=== PATIENT | female | born 1995 | race Caucasian/White ===

== ENCOUNTER → 2016-04-05 | Outpatient (CLI) | payer BC ==
--- NOTE | 2016-04-05 10:28 | US ---
EXAMINATION TYPE: US OB anatomy transabd DATE OF EXAM: 04/05/2016 8:50 AM COMPARISON: February ultrasound HISTORY: Large for dates TECHNIQUE: Transabdominal (TA) EXAM MEASUREMENTS: GESTATIONAL AGE / DATING Physician Established: (18 weeks/ 4 days) EDC: 09/02/2016 Dates by LMP: (18 weeks/ 4 days) EDC: 09/02/2016 Dates by First Scan: (19 weeks/ 1 days) EDC: 08/29/2016 Dates by Current Scan: (18 weeks/ 1 days) EDC: 09/05/2016 SURVEY IUP: Single PLACENTA: Posterior PREVIA: Low Lying: tip of placenta 2.0cm from internal cervical os ENRIQUE: 12.1 cm Normal CERVICAL LENGTH (transabdominal: norm > 3.0cm): 3.5 cm BIOMETRY PRESENTATION: Breech LIE: Longitudinal BPD: 4.0 cm 18 weeks / 1 days HC: 15.3 cm 18 weeks / 2 days AC: 12.6 cm 18 weeks / 1 days FL: 2.7 cm 18 weeks / 1 days ESTIMATED WEIGHT IN GRAMS: 227.6 grams ESTIMATED WEIGHT IN LBS/OZS: 0 lbs. 8 oz. WEIGHT PERCENTAGE BASED ON ESTABLISHED DATE: 23.8 % HC/AC: Normal 1.22 FL/AC: 21.38 HEART RATE: 147 bpm RHYTHM: Normal ANATOMY SEEN (within normal limits): * Lateral Vent (< 1 cm) 0.7cm * Cisterna Magna (< 1.1 cm) 0.4cm * Nuchal Fold (< 0.6 cm) 0.3cm * Cerebellum (varies with age) 1.6cm Choroid Plexus (bilateral) Midline Falx Cavus Septi Pellucidi Four Chamber Heart Outflow tracts: LVOT/RVOT not ideally demonstrated. Stomach Situs Nose / Lips Diaphragm Kidneys (bilateral) Bladder Cord Insert Three Vessel Cord Longitudinal Spine Transverse Spine Arms (bilateral) Legs (bilateral) TECHNOLOGIST IMPRESSION: Viable single IUP measuring 18 weeks 1 day with a heart rate of 147bpm and an estimated delivery date of 09/05/2016. IMPRESSION: Single viable intrauterine corresponding to ultrasound age 18 weeks 1 day with estimated da te of delivery 05 September 2016 as described.
== END | disposition home or self-care (01) ==
LOC: RADUSWWP 07:46
PROVIDERS: ATTEND Obstetrics & Gynecology
DX: O36.62X0 Maternal care for excessive fetal growth, second trimester, not applicable or unspecified (principal); Z3A.18 18 weeks gestation of pregnancy
CPT/HCPCS: 76811

== ENCOUNTER → 2016-05-19 | Outpatient (CLI) | payer BC ==
[2016-05-19 10:35] LABS: CH 30.3; CHCM 33.5; HCT 36.4 % (34.0-46.0); HDW 2.67; HGB 11.8 gm/dL (11.4-16.0); MCH 29.6 pg (25.0-35.0); MCHC 32.6 g/dL (31.0-37.0); Mean Platelet Volume 7.1; WBC 16.9 k/uL (3.8-10.6)
== END | disposition home or self-care (01) ==
LOC: LABWHC1 07:59
PROVIDERS: ATTEND Obstetrics & Gynecology
DX: Z34.82 Encounter for supervision of other normal pregnancy, second trimester (principal); Z3A.00 Weeks of gestation of pregnancy not specified
CPT/HCPCS: 36415; 82950; 85027; 86850

== ENCOUNTER → 2016-06-14 | Outpatient (CLI) | payer BC ==
--- NOTE | 2016-06-14 12:11 | US ---
EXAMINATION TYPE: US OB anatomy transabd DATE OF EXAM: 06/14/2016 11:16 AM COMPARISON: In pacs HISTORY: Previous abnormal, placenta placement TECHNIQUE: Transabdominal (TA) EXAM MEASUREMENTS: GESTATIONAL AGE / DATING Physician Established: (28 weeks/4 days) EDC: 09/02/2016 Dates by LMP: (28 weeks/4 days) EDC: 09/02/2016 Dates by First Scan: (29 weeks/1 days) EDC: 08/29/2016 Dates by Current Scan for: (29 weeks/1 days) EDC: 08/29/2016 SURVEY IUP: Single PLACENTA: Posterior PREVIA: No previa ENRIQUE: 12.3 cm Normal CERVICAL LENGTH (transabdominal: norm > 3.0cm): 3.4 cm BIOMETRY PRESENTATION: Vertex LIE: Longitudinal BPD: 7.3 cm 29 weeks / 3 days HC: 26.0 cm 28 weeks / 2 days AC: 24.4 cm 28 weeks / 5 days FL: 5.7 cm 30 weeks / 0 days ESTIMATED WEIGHT IN GRAMS: 1331 grams ESTIMATED WEIGHT IN LBS/OZS: 2 lbs. 15 oz. WEIGHT PERCENTAGE BASED ON ESTABLISHED DATE: 56 % HC/AC: 1.07 Normal FL/AC: 23% Normal HEART RATE: 129 bpm RHYTHM: Normal ANATOMY SEEN (within normal limits): Midline Falx Cavus Septi Pellucidi Outflow tracts: RVOT Stomach Situs Nose / Lips Diaphragm Kidneys (bilateral) Bladder Cord Insert Three Vessel Cord Longitudinal Spine Transverse Spine ANATOMY NOT SEEN: * Lateral Vent (< 1 cm) cm * Cisterna Magna (< 1.1 cm) cm * Nuchal Fold (< 0.6 cm) cm * Cerebellum (varies with age) cm Choroid Plexus (bilateral) Four Chamber Heart Outflow Tracts: LVOT Arms (bilateral) Legs (bilateral) TECHNOLOGIST IMPRESSION: Viable single IUP measuring 29 weeks 1 day with a heart rate of 129bpm and an estimated delivery date of 08/29/2016. IMPRESSION: Single viable intrauterine corresponding to ultrasound age 29 weeks 1 day with estimated da te of delivery August by today's exam. Limited exam.
== END ==
LOC: RADUSWWP 10:36
PROVIDERS: ATTEND Obstetrics & Gynecology
DX: Z36 Encounter for antenatal screening of mother (principal)
CPT/HCPCS: 76811

== ENCOUNTER → 2016-08-03 | Outpatient (CLI) | payer BC ==
--- NOTE | 2016-08-03 13:30 | US ---
EXAMINATION TYPE: US OB >= 14 wk fetus DATE OF EXAM: 08/03/2016 10:00 AM COMPARISON: None CLINICAL HISTORY: Large for Dates O36.63X0 TECHNIQUE: OBTA GESTATIONAL AGE / DATING Physician Established: (35 weeks/5 days) EDC: 09/02/2016 Dates by LMP: (35 weeks/5 days) EDC: 09/02/2016 Dates by First Scan: (36 weeks/2 days) EDC: 08/29/2016 Dates by Current Scan: (34 weeks/5 days) EDC: 09/09/2016 SURVEY IUP: Single PLACENTA: Anterior PREVIA: No Previa ENRIQUE: 12.0 cm Normal CERVICAL LENGTH (transabdominal: norm > 3.0cm): 3.4 cm BIOMETRY PRESENTATION: Vertex LIE: Longitudinal BPD: 8.7 cm 35 weeks / 0 days HC: 31.4 cm 35 weeks / 1 days AC: 31.8 cm 35 weeks / 1 days FL: 6.7 cm 34 weeks / 4 days ESTIMATED WEIGHT IN GRAMS: 2638 grams ESTIMATED WEIGHT IN LBS/OZS: 5 lbs. 13 oz. WEIGHT PERCENTAGE BASED ON ESTABLISHED DATES: 37% HC/AC: 1.0 Normal FL/AC: 21.1 Normal HEART RATE: 143 bpm RHYTHM: Normal ANATOMY SEEN (within normal limits): Four Chamber Heart Outflow tracts: LVOT/RVOT Stomach Situs Nose / Lips Diaphragm Kidneys (bilateral) Bladder IMPRESSION: Single viable intrauterine corresponding to ultrasound age 34 weeks 5 days with estimated d ate of delivery 09 September 2016 by today's exam. Limited survey.
== END | disposition home or self-care (01) ==
LOC: RADUSWWP 09:27
PROVIDERS: ATTEND Obstetrics & Gynecology
DX: O36.63X0 Maternal care for excessive fetal growth, third trimester, not applicable or unspecified (principal); Z3A.34 34 weeks gestation of pregnancy
CPT/HCPCS: 76811

== ENCOUNTER 2016-08-13 21:49 | Inpatient (IN) | payer BC ==
[2016-08-13 22:15] LABS: Appearance,Urine Clear (Clear); Bacteria,Urine Occasional /hpf; Bilirubin,Urine Negative (Negative); Glucose,Urine (UA) Negative (Negative); Ketones,Urine Negative (Negative); Leukocyte Esterase,Urine Trace (Negative); Mucus,Urine Rare /hpf; Nitrite,Urine Negative (Negative); PH, Urine 6.5 (5.0-8.0); Particle Count 4420; Protein,Urine 2+ (Negative); RBC,Urine 1 /hpf (0-5); Specific Gravity,Urine 1.014 (1.001-1.035); Squamous Epithelial Cell,Urine 1 /hpf (0-4); UA Billing (MACRO vs. MICRO) MICRO; Urobilinogen,Urine <2.0 mg/dL (<2.0); WBC,Urine 2 /hpf (0-5)
[2016-08-13] MEDS ORDERED: MAGNESIUM SULFATE-D5W PMX 1 GM in DEXTROSE/WATER 1 100ML.BAG IVPB SCH (22:30)
[2016-08-13] MEDS ORDERED: LACTATED RINGERS 1,000 ML IV SCH (22:30)
[2016-08-13 22:43] LABS: Basophils # (A) 0.1 k/uL (0-0.2); Basophils % (A) 0 %; CH 27.6; CHCM 32.7; Eosinophils # (A) 0.2 k/uL (0-0.7); Eosinophils % (A) 1 %; HCT 33.8 % (34.0-46.0); HDW 3.06; HGB 11.2 gm/dL (11.4-16.0); Luc # (Auto) 0.32; Luc % (Auto) 2; Lymphocytes % (A) 14 %; MCV 84.8 fL (80.0-100.0); Mean Platelet Volume 8.9; Monocytes # (A) 0.9 k/uL (0-1.0); Monocytes % (A) 6 %; Neutrophils # (A) 10.8 k/uL (1.3-7.7); Neutrophils % (A) 76 %; RBC 3.98 m/uL (3.80-5.40); RDW 14.2 % (11.5-15.5); WBC 14.3 k/uL (3.8-10.6); WBC (Perox) 14.89
[2016-08-13 22:51] LABS: ALT 27 U/L (9-52); AST 24 U/L (14-36); Blood Urea Nitrogen 10 mg/dL (7-17); INR 0.9 (<1.1); LDH 475 U/L (313-618); Non-African American GFR(MDRD) >60 (>60 ml/min/1.73 sqM); Partial Thromboplastin Time 22.1 sec (22.0-30.0); Prothrombin Time 9.3 sec (9.0-12.0); Uric Acid 4.9 mg/dL (3.7-7.4)
[2016-08-13] MEDS ORDERED: MAGNESIUM SULFATE-WATER PMX 4 GM in WATER FOR INJECTION 1 50ML.BAG IVPB ONE (23:00)
[2016-08-13] MEDS: MAGNESIUM SULFATE-WATER PMX 20 GM in WATER FOR INJECTION 1 500ML.BAG IV SCH (23:07)
[2016-08-14] MEDS ORDERED: METHYLERGONOVINE 0.2 MG/ML 1 ML AMP IM PRN (00:07)
[2016-08-14] MEDS ORDERED: TERBUTALINE 1 MG/ML VIAL SQ PRN (00:07)
[2016-08-14] MEDS ORDERED: LIDOCAINE 1% (PF) 10 MG/ML (30 ML SDV) SQ PRN (00:07)
[2016-08-14] MEDS ORDERED: OXYTOCIN 10 UNIT/ML 1 ML VIAL IM PRN (00:07)
[2016-08-14] MEDS ORDERED: CARBOPROST TROMETHAMINE 250 MCG/ML 1 ML AMP IM PRN (00:07)
[2016-08-14] MEDS ORDERED: OXYTOCIN 20 UNITS/1000 ML NS 1,000 ML IV SCH ×2 (00:15→14:14)
--- NOTE | 2016-08-14 01:00 | P.HPOB ---
History of Present Illness H&P Date: 08/14/16 Chief Complaint: Leg swelling, elevated blood pressure This is a 20-year-old female 1 para 0, with an estimated date of confinement of 09/02/2016, estimated gestational age of 37 and one sevenths weeks, who presented to labor and delivery complaining of a headache for the last 2 days along with significant leg swelling and elevated blood pressures at home. She states her blood pressures at home or in the 150s over 90s. She only took her blood pressure because she began having a headache along with a slight swelling. She initially thought the leg swelling was just from being on her feet at work. Upon arrival to labor and delivery her blood pressures were in the range of 188/96, 180/93, 193/95. Labs were drawn and she was immediately started on magnesium sulfate seizure prophylaxis. Order was also given for IV labetalol however it was not needed due to her blood pressure did come down significantly with the magnesium. All of her labs were normal other than she did have 2+ protein. Her has been uncomplicated up until this point. She feels occasional sharp pressure and occasional contractions but nothing regular. She denies any leakage or vaginal bleeding. The patient was counseled extensively on induction of labor versus proceeding with a primary section since she is remote from delivery. She would like to attempt vaginal delivery if possible, however she is aware that she may still need a even after attempted induction. I have advised her I'm in agreement with this plan as long as her blood pressures stayed stable on the magnesium. labs: record is not available at the time of this dictation. Labs are obtained off of the computer. Patient states no problems during her . She did receive RhoGAM at approximately 28 weeks. Blood type-A- Antibody screen-negative Rubella-immune Hepatitis B surface antigen-negative HIV-neg Group B streptococcus-negative One hour Glucola-102 Syphilis antibody-negative Review of Systems Constitutional: Denies chills, Denies fever Eyes: denies blurred vision Ears, nose, mouth and throat: Denies sore throat Cardiovascular: Denies chest pain, Denies shortness of breath Respiratory: Denies cough Gastrointestinal: Denies abdominal pain, Denies diarrhea, Denies nausea, Denies vomiting Genitourinary: Reports pelvic pain (Some pelvic pressure), Reports Musculoskeletal: Denies myalgias Musculoskeletal: bilateral: ankle swelling, foot swelling (Leg swelling up to her knees bilaterally) Integumentary: Denies pruritus, Denies rash Neurological: Reports headaches (2 days), Denies numbness, Denies weakness Endocrine: Denies fatigue Past Medical History Past Medical History: No Reported History History of Any Multi-Drug Resistant Organisms: None Reported Additional Past Surgical History / Comment(s): wisdom teeth Past Anesthesia/Blood Transfusion Reactions: No Reported Reaction Past Psychological History: No Psychological Hx Reported Smoking Status: Never smoker Past Alcohol Use History: None Reported Past Drug Use History: None Reported - Past Family History Mother Family Medical History: Hypertension Father Family Medical History: Hypertension Medications and Allergies Home Medications Medication Instructions Recorded Confirmed Type Pnv #78/Iron Asp Gly/FA#1/Dha 1 each PO DAILY 06/30/16 08/13/16 History [Prenate Dha Softgel] Allergies Allergy/AdvReac Type Severity Reaction Status Date / Time No Known Allergies Allergy Verified 08/13/16 21:59 Exam Osteopathic Statement: *. No significant issues noted on an osteopathic structural exam other than those noted in the History and Physical/Consult. - Vital Signs Vital signs: Vital Signs Temp Pulse Resp BP Pulse Ox 08/13/16 21:53 97.2 F L 85 16 188/96 100 Intake and Output 08/13/16 08/13/16 08/14/16 14:59 22:59 06:59 Other: Weight 73.284 kg Patient Weight 08/14/16 06:59 Weight 73.284 kg Gen.: Well-developed well-nourished female in no acute distress HEENT: Within normal limits Heart: Regular rate and rhythm Lungs: Clear to auscultation bilaterally Abdomen: Cervix: 1 cm/60%/-3. Artificial rupture members is carried out with clear fluid noted. heart tones: Reactive Contractions: Rare Extremities: 2+ pitting edema on her lower extremities bilaterally. Deep tendon reflexes are slightly increased prior to magnesium. Results Result Diagrams: 08/13/16 22:30 08/13/16 22:30 Abnormal Lab Results - Last 24 Hours (Table) 08/13/16 08/13/16 Range/Units 21:55 22:30 WBC 14.3 H (3.8-10.6) k/uL Hgb 11.2 L (11.4-16.0) gm/dL Hct 33.8 L (34.0-46.0) % Neutrophils # 10.8 H (1.3-7.7) k/uL Urine Protein 2+ H (Negative) Ur Leukocyte Esterase Trace H (Negative) Urine Bacteria Occasional H (None) /hpf Urine Mucus Rare H (None) /hpf Assessment and Plan (1) Severe pre-eclampsia affecting first Status: Acute (2) 37 weeks gestation of Status: Acute Plan: Magnesium sulfate seizure prophylaxis. We'll start oxytocin induction of labor. Patient is advised she can have Stadol as needed for pain control or epidural once she makes change. We will closely monitor blood pressures throughout labor. The patient is aware that if her blood pressures become too high or uncontrollable, she may need to have a section.
[2016-08-14] MEDS: BUTORPHANOL 1 MG/ML 1 ML VIAL IV PRN ×2 (04:11→06:39)
--- NOTE | 2016-08-14 06:03 | P.PN ---
Progress Note - Text This is hospital day #2.'s blood pressures have come down on the magnesium sulfate and bedrest. Patient's cervix is 2 cm 70% and -1 station. heart tones are reactive. This patient has made little progress in the last 6-7 hours. I discussed continued labor versus delivery at this time and she would like to continue with labor. I told her we would reevaluate at noon today or earlier if evidence of a worsening hypertension or concerns with compromise.
[2016-08-14] MEDS: LACTATED RINGERS 1,000 ML IV SCH ×2 (07:48→11:16)
[2016-08-14] MEDS ORDERED: fentaNYL (PF) 50 MCG/ML 5 ML AMP ONE (08:34)
[2016-08-14] MEDS ORDERED: BUPIVACAINE (PF) 0.25% 30 ML VIAL ONE (08:34)
[2016-08-14] MEDS ORDERED: SODIUM CHLORIDE 0.9% 100 ML BAG ONE (08:34)
[2016-08-14] MEDS ORDERED: BUPIVACAINE (PF) 0.25% 25 ML, fentaNYL (PF) 200 MCG in SODIUM CHLORIDE 0.9% 71 ML EPIDURAL ONE (08:50)
[2016-08-14] MEDS: MAGNESIUM SULFATE-WATER PMX 20 GM in WATER FOR INJECTION 1 500ML.BAG IV SCH ×3 (09:15→22:54)
[2016-08-14] MEDS ORDERED: LANOLIN CREAM 5 GM TUBE TOPICAL PRN (14:14)
[2016-08-14] MEDS ORDERED: Rhogam IMMUNE GLOBULIN 1,500 UNIT/1 ML IM ONE (14:14)
[2016-08-14] MEDS ORDERED: diphenhydrAMINE 25 MG CAP PO PRN (14:14)
[2016-08-14] MEDS ORDERED: BENZOCAINE/MENTHOL SPRAY 1 GM/SPRAY AEROSOL TOPICAL PRN (14:14)
[2016-08-14] MEDS ORDERED: Acetaminophen-Codeine 300-30mg TAB PO PRN ×2 (14:14)
[2016-08-14] MEDS ORDERED: BISACODYL 10 MG SUPP RECTAL PRN (14:14)
[2016-08-14] MEDS ORDERED: WITCH HAZEL 1 EACH MED..PAD TOPICAL PRN (14:14)
[2016-08-14] MEDS ORDERED: ZOLPIDEM 5 MG TAB PO PRN (14:14)
[2016-08-14] MEDS ORDERED: diphenhydrAMINE 50 MG/ML 1 ML VIAL IVP PRN (14:14)
[2016-08-14] MEDS ORDERED: SIMETHICONE 80 MG CHEWABLE PO PRN (14:14)
[2016-08-14] MEDS ORDERED: HYDROCORTISONE 2.5% RECTAL CREAM 30 GM TUBE RECTAL PRN (14:14)
[2016-08-14] MEDS: ACETAMINOPHEN TAB 325 MG TAB PO PRN (14:20)
[2016-08-14] MEDS: IBUPROFEN 600 MG TAB PO PRN ×2 (15:49→22:21)
--- NOTE | 2016-08-14 17:15 | P.PROBDLV ---
Vaginal Delivery Note - . Vaginal Delivery Note: Normal vaginal delivery viable female Apgars 8 and 9 delivery time is 1346. Please see dictated H&P per Dr. Avalos on this patient's admission. Brief summary this is a pleasant 20-year-old 1 para 0 female 37-2/7 weeks gestation admitted to labor and delivery with complaints of elevated blood pressure at home and swelling. Patient's found to have significant blood pressure elevation here placed on magnesium sulfate and has Pitocin induction of labor. Patient's labor does progress she receives intrapartum Stadol for pain control and then an epidural. Patient's blood pressures do come down after administration of magnesium sulfate. Patient's labor progresses quite quickly she gets to complete. Patient pushes the head to the perineum posterior perineum is supported. Patient is a bit out of control at this time in an episiotomy is necessary to facilitate delivery of the infant's head. Mouth and nares are bulb suctioned and there is a nuchal cord 1 which is easily reduced. With gentle downward traction we then have deliver the anterior and posterior shoulder and rest this 's body. This is a vigorous viable female Apgars are 8 and 9 delivery time was 1346 hrs. After delivery of the infant the umbilical cord is doubly clamped and cut appears to be trivascular. The placenta spontaneously delivered intact. There is some uterine atony at this time and therefore I discontinue the magnesium sulfate and give her Pitocin bolus. Uterus responds well and the bleeding subsides. I do express several clots. Inspection of perineum shows a second- degree laceration which was repaired with 3-0 Vicryl in the usual fashion. Excellent reapproximation is noted. All counts are correct 3. There are no complications. Infant and mother stable delivery room. I will restart the sulfate proximally 2 hours.
[2016-08-14] MEDS: IRON AG/C/B12/CA/SUC.ACID/STOM 1 EACH TAB PO SCH (18:38)
[2016-08-14] MEDS: SENNOSIDES-DOCUSATE SODIUM 1 EACH TAB PO SCH (22:22)
[2016-08-15] MEDS: IBUPROFEN 600 MG TAB PO PRN ×3 (05:40→20:08)
--- NOTE | 2016-08-15 05:52 | P.PNOBGVD ---
Subjective - Subjective Patient reports: Reports appetite normal, Reports voiding normally, Reports pain well controlled, Reports ambulating normally : doing well Objective - Latest Vital Signs Latest vital signs: Vital Signs Temp Pulse Resp BP Pulse Ox 08/15/16 04:00 98.6 F 70 12 110/61 08/14/16 23:11 98.0 F 78 14 89/59 99 08/14/16 20:00 97.9 F 91 15 129/72 08/14/16 16:16 77 16 131/68 100 08/14/16 16:03 98.3 F 94 17 136/75 100 08/14/16 15:33 90 19 136/75 08/14/16 15:03 92 19 138/82 08/14/16 14:48 91 18 152/75 100 08/14/16 14:33 88 18 154/79 08/14/16 14:18 99 17 140/63 08/14/16 14:03 97.6 F 92 19 137/68 Intake and Output 08/14/16 08/14/16 08/15/16 14:59 22:59 06:59 Intake Total 500 500 Output Total 4 1700 Balance 500 496 -1700 Intake: Intake, IV Titration 500 500 Amount Magnesium Sulfate-Water 500 500 Pmx 20 gm In Water For Injection 1 500ml.bag @ 2 GM/HR 50 mls/hr IV .Q10H SLY Rx#:[id number] Output: Urine 4 Stool 1700 Other: # Voids 550 1 - Exam Lungs: bilateral: normal Chest: Normal S1, Normal S2 Extremities: Present: normal Abdomen: Present: normal appearance, soft Uterus: Present: normal, firm Assessment and Plan (1) 37 weeks gestation of Narrative/Plan: day #1. Patient is resting without new complaints. Vital signs are stable, blood pressures are much improved. Patient is still on magnesium sulfate and I think I'm going to discontinue that this morning. Plan is to continue routine care, check a CBC. Current Visit: Yes Status: Acute Code(s): Z3A.37 - 37 WEEKS GESTATION OF SNOMED Code(s): 26764515 (2) Severe pre-eclampsia affecting first Current Visit: Yes Status: Acute Code(s): O14.10 - SEVERE PRE-ECLAMPSIA, UNSPECIFIED TRIMESTER SNOMED Code(s): 22828784
[2016-08-15 08:22] LABS: Basophils % (A) 0 %; CH 27.8; CHCM 33.1; Eosinophils # (A) 0.1 k/uL (0-0.7); Eosinophils % (A) 1 %; HCT 25.3 % (34.0-46.0); HDW 3.19; Luc % (Auto) 1; Lymphocytes # (A) 1.5 k/uL (1.0-4.8); Lymphocytes % (A) 11 %; MCH 28.6 pg (25.0-35.0); MCHC 33.8 g/dL (31.0-37.0); MCV 84.5 fL (80.0-100.0); Mean Platelet Volume 7.9; Monocytes # (A) 0.9 k/uL (0-1.0); Monocytes % (A) 6 %; Neutrophils # (A) 11.9 k/uL (1.3-7.7); Neutrophils % (A) 82 %; RDW 14.5 % (11.5-15.5); WBC 14.5 k/uL (3.8-10.6); WBC (Perox) 14.93
[2016-08-15 08:31] LABS: HGB 8.6 gm/dL (11.4-16.0)
[2016-08-15] MEDS: ACETAMINOPHEN TAB 325 MG TAB PO PRN ×2 (08:54→16:19)
[2016-08-15] MEDS: SENNOSIDES-DOCUSATE SODIUM 1 EACH TAB PO SCH ×2 (08:54→19:57)
[2016-08-15] MEDS: IRON AG/C/B12/CA/SUC.ACID/STOM 1 EACH TAB PO SCH (12:10)
[2016-08-16] MEDS: ACETAMINOPHEN TAB 325 MG TAB PO PRN (03:39)
[2016-08-16 03:41] VITALS: RESP 16
--- NOTE | 2016-08-16 06:10 | P.PNOBGVD ---
Subjective - Subjective Patient reports: Reports appetite normal, Reports voiding normally, Reports pain well controlled, Reports ambulating normally : doing well Objective - Latest Vital Signs Latest vital signs: Vital Signs Temp Pulse Resp BP Pulse Ox 08/16/16 04:00 134/71 08/16/16 03:40 98.1 F 79 16 154/79 08/15/16 22:26 98.3 F 71 14 127/70 08/15/16 19:58 98.8 F 83 15 141/81 08/15/16 16:00 98.4 F 72 16 138/63 100 08/15/16 12:00 98.0 F 81 16 119/50 100 08/15/16 08:00 97.8 F 80 16 82/64 100 Intake and Output 08/15/16 08/15/16 08/16/16 14:59 22:59 06:59 Other: # Voids 1 1 # Bowel Movements 0 0 - Exam Lungs: bilateral: normal Chest: Normal S1, Normal S2 Extremities: Present: normal Abdomen: Present: normal appearance, soft Uterus: Present: normal, firm - Labs Labs: Abnormal Lab Results - Last 24 Hours (Table) 08/15/16 Range/Units 07:28 WBC 14.5 H (3.8-10.6) k/uL RBC 3.00 L (3.80-5.40) m/uL Hgb 8.6 L D (11.4-16.0) gm/dL Hct 25.3 L (34.0-46.0) % Neutrophils # 11.9 H (1.3-7.7) k/uL Assessment and Plan (1) 37 weeks gestation of Narrative/Plan: day #2. Patient is resting without complaints blood pressures have been fine except for 1 or 2 elevated blood pressures however repeats were okay. I do not see an indication for treatment at this time however patient is going to go home today and plan is to have her see me in 1 week for repeat blood pressure check. Hemoglobin yesterday was 8.6 which was expected her bleeding has been normal now. She is already on iron. Plan today is to continue routine care. Discharge home this morning. Follow-up with me in 1 week. Current Visit: Yes Status: Acute Code(s): Z3A.37 - 37 WEEKS GESTATION OF SNOMED Code(s): 13511175 (2) Severe pre-eclampsia affecting first Current Visit: Yes Status: Acute Code(s): O14.10 - SEVERE PRE-ECLAMPSIA, UNSPECIFIED TRIMESTER SNOMED Code(s): 44163334
--- NOTE | 2016-08-16 06:13 | P.DS ---
Providers Date of admission: 08/13/16 22:24 Expected date of discharge: 08/16/16 Attending physician: Mj Peters Primary care physician: Stated None - Discharge Diagnosis(es) (1) 37 weeks gestation of Current Visit: Yes Status: Acute (2) Severe pre-eclampsia affecting first Current Visit: Yes Status: Acute Hospital Course: Please see dictated H&P for intimate details of this patient's admission. Brief summary this is a pleasant 20-year-old 1 para 0 female 37-2/7 weeks gestation admitted to labor and delivery with significant hypertension and a diagnosis of preeclampsia patient induction of labor quickly goes on to have a vaginal delivery viable female . patient was placed on magnesium sulfate and her blood pressure normalized. Delivery was complicated by some transient atony however she did not require anything other than and iron therapy. Patient had for the most part normal blood pressures but she did have 1 or 2 elevated blood pressures and therefore upon discharge I asked her to see me in 1 week for a blood pressure check. Procedures: Induction of labor and normal vaginal delivery Patient Condition at Discharge: Good Plan - Discharge Summary New Discharge Prescriptions: Acetaminophen-Codeine 300-30mg [Tylenol w/codeine #3] 1 - 2 each PO Q4HR PRN # 30 tab PRN Reason: Mild Pain exceeding Tylenol Ibuprofen [Motrin] 600 mg PO Q6HR PRN #40 tab PRN Reason: Mild Pain Or Fever >= 100.5 Iron Ag/C/B12/Ca/Suc.acid/Stom [Chromagen LF] 1 each PO DAILY@1200 #30 tab Discharge Medication List 78/Iron/Folate 1/Dha [Prenate Dha Softgel] 1 each PO DAILY 06/30/16 [ History] Acetaminophen-Codeine 300-30mg [Tylenol w/codeine #3] 1 - 2 each PO Q4HR PRN # 30 tab 08/16/16 [Rx] Ibuprofen [Motrin] 600 mg PO Q6HR PRN #40 tab 08/16/16 [Rx] Iron Ag/C/B12/Ca/Suc.acid/Stom [Chromagen LF] 1 each PO DAILY@1200 #30 tab 08/16 [Rx] Follow up Appointment(s)/Referral(s): Mj Peters MD [STAFF PHYSICIAN] - 1 Week (Patient also has a check on September 27 at 8:45 AM.) Patient Instructions/Handouts: Vaginal Delivery (DC) Activity/Diet/Wound Care/Special Instructions: No intercourse or anything per vagina for 6 weeks. Please call if any fever, chills, excessive vaginal bleeding, and/or abdominal pain. Discharge Disposition: HOME SELF-CARE
[2016-08-16] MEDS: SENNOSIDES-DOCUSATE SODIUM 1 EACH TAB PO SCH (08:07)
[2016-08-16] MEDS: IBUPROFEN 600 MG TAB PO PRN (08:08)
[2016-08-16 08:51] VITALS: BP 131/65; PULSE 78; TEMP 98.2
== END 2016-08-16 10:07 | disposition home or self-care (01) | DRG 775 ==
LOC: FBPOP 21:49 → 4FBP 22:24
PROVIDERS: ADMIT Obstetrics & Gynecology; ATTEND Obstetrics & Gynecology
PROC: 10E0XZZ Delivery of Products of Conception, External Approach (ICD-10-PCS; principal; 2016-08-14)
PROC: 0KQM0ZZ Repair Perineum Muscle, Open Approach (ICD-10-PCS; 2016-08-14)
PROC: 0W8NXZZ Division of Female Perineum, External Approach (ICD-10-PCS; 2016-08-14)
PROC: 3E033VJ Introduction of Other Hormone into Peripheral Vein, Percutaneous Approach (ICD-10-PCS; 2016-08-14)
DX: O14.14 Severe pre-eclampsia complicating childbirth (principal); O62.2 Other uterine inertia; O69.81X0 Labor and delivery complicated by cord around neck, without compression, not applicable or unspecified; O70.1 Second degree perineal laceration during delivery; Z37.0 Single live birth; Z3A.37 37 weeks gestation of pregnancy; Z82.49 Family history of ischemic heart disease and other diseases of the circulatory system
CPT/HCPCS: 59025; 81001; 82565; 83615; 84450; 84460; 84520; 84550; 85025; 85610; 85730; 88307; 99213

== ENCOUNTER 2017-07-12 04:23 | Emergency (ER) | payer BC ==
[2017-07-12 04:55] LABS: Amorphous Sediment,Urine Few /hpf; Appearance,Urine Cloudy (Clear); Bilirubin,Urine Negative (Negative); Blood,Urine Negative (Negative); Color,Urine Yellow; Glucose,Urine (UA) Negative (Negative); Ketones,Urine Negative (Negative); Leukocyte Esterase,Urine Negative (Negative); Mucus,Urine Rare /hpf; Nitrite,Urine Negative (Negative); Protein,Urine Negative (Negative); Specific Gravity,Urine 1.014 (1.001-1.035); Squamous Epithelial Cell,Urine <1 /hpf (0-4); Urobilinogen,Urine <2.0 mg/dL (<2.0)
[2017-07-12 05:04] LABS: Basophils % (A) 0 %; Eosinophils # (A) 0.2 k/uL (0-0.7); Eosinophils % (A) 1 %; HCT 41.1 % (34.0-46.0); HGB 14.1 gm/dL (11.4-16.0); Lymphocytes # (A) 1.3 k/uL (1.0-4.8); Lymphocytes % (A) 7 %; MCH 28.4 pg (25.0-35.0); MCHC 34.4 g/dL (31.0-37.0); MCV 82.5 fL (80.0-100.0); Mean Platelet Volume 6.9; Monocytes # (A) 0.6 k/uL (0-1.0); Monocytes % (A) 3 %; Neutrophils % (A) 88 %; Platelet Count 247 k/uL (150-450); RBC 4.98 m/uL (3.80-5.40); RDW 12.7 % (11.5-15.5); WBC 18.2 k/uL (3.8-10.6)
[2017-07-12 05:19] LABS: ALT 23 U/L (9-52); AST 21 U/L (14-36); Albumin 4.5 g/dL (3.5-5.0); Alkaline Phosphatase 73 U/L (38-126); Anion Gap 15 mmol/L; Blood Urea Nitrogen 10 mg/dL (7-17); Calcium 9.8 mg/dL (8.4-10.2); Carbon Dioxide 23 mmol/L (22-30); Chloride 102 mmol/L (98-107); Glucose 88 mg/dL (74-99); Potassium 3.9 mmol/L (3.5-5.1); Sodium 140 mmol/L (137-145); Total Bilirubin 0.5 mg/dL (0.2-1.3); Total Protein 7.1 g/dL (6.3-8.2)
[2017-07-12] MEDS ORDERED: METOCLOPRAMIDE 5 MG/ML 2 ML VIAL IVP STA (05:25)
[2017-07-12] MEDS ORDERED: ACETAMINOPHEN TAB 325 MG TAB PO STA (05:25)
--- NOTE | 2017-07-12 05:30 | ED ---
Abdominal Pain HPI <Willy Leroy - Last Filed: 07/12/17 09:05> - General Source: patient Mode of arrival: ambulatory Limitations: no limitations - History of Present Illness MD Complaint: abdominal pain, flank pain -: hour(s) Location: [facility] Radiation: L flank Migration to: no migration Severity: severe Quality: sharp Consistency: constant Improves With: nothing Worsens With: nothing Associated Symptoms: nausea, vomiting - Related Data LMP (females 10-50): Patient : Yes Number of weeks : 13 <David Mehta - Last Filed: 07/15/17 10:15> - General Chief Complaint: Abdominal Pain Stated Complaint: 13 weeks preg, abd pain Time Seen by Provider: 07/12/17 04:57 - History of Present Illness Initial Comments: She is 21-year-old woman presenting to be evaluated for left upper quadrant pain. The patient states that the pain began yesterday in the afternoon and has seemed to get a bit worse over the course of tonight. She indicates left upper quadrant and states that it started radiating towards her left flank. She describes it as sharp, constant, now severe. She has not noted any worsening or relieving factors. She states she did take some Tylenol last night , but that she had some vomiting shortly after. She has had 2 episodes of vomiting without seeing blood or bile. She has not noted any change in bowel movements, the last bowel movement was yesterday and was normal. She is not having any vaginal bleeding or vaginal discharge. She has not noted change in urination. 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 Peters as she had a history of preeclampsia with her first . She does take an 81 mg aspirin daily for this. She does check her blood pressure home and states that it has not been hypertensive at home. (David Mehta) - Related Data Home Medications Medication Instructions Recorded Confirmed Aspirin EC [Ecotrin Low Dose] 81 mg PO DAILY 07/12/17 07/12/17 Pnv,Calcium 72/Iron/Folic Acid 1 tab PO DAILY 07/12/17 07/12/17 [ Plus Tablet] Allergies Allergy/AdvReac Type Severity Reaction Status Date / Time No Known Allergies Allergy Verified 07/12/17 07:27 Review of Systems ROS Other: All systems not noted in ROS Statement are negative. <Willy Leroy - Last Filed: 07/12/17 09:05> ROS Other: All systems not noted in ROS Statement are negative. Constitutional: Denies: fever, chills, weakness Respiratory: Denies: cough, dyspnea Cardiovascular: Denies: chest pain, palpitations, edema Gastrointestinal: Reports: as per HPI, abdominal pain, nausea, vomiting. Denies : diarrhea, constipation, hematemesis, melena, hematochezia Genitourinary: Denies: dysuria, frequency, hematuria, discharge, abnormal menses Musculoskeletal: Denies: back pain Skin: Denies: rash Neurological: Denies: headache <David Mehta - Last Filed: 07/15/17 10:15> ROS Statement: Those systems with pertinent positive or pertinent negative responses have been documented in the HPI. Past Medical History Past Medical History: No Reported History History of Any Multi-Drug Resistant Organisms: None Reported Additional Past Surgical History / Comment(s): wisdom teeth Past Anesthesia/Blood Transfusion Reactions: No Reported Reaction Past Psychological History: No Psychological Hx Reported Smoking Status: Never smoker Past Alcohol Use History: None Reported Past Drug Use History: None Reported - Past Family History Mother Family Medical History: Hypertension Father Family Medical History: Hypertension <David Mehta - Last Filed: 07/15/17 10:15> General Exam Limitations: no limitations General appearance: alert, in no apparent distress Head exam: Present: atraumatic, normocephalic Eye exam: Present: normal appearance. Absent: scleral icterus, conjunctival injection ENT exam: Present: normal oropharynx Neck exam: Present: normal inspection Respiratory exam: Present: normal lung sounds bilaterally. Absent: respiratory distress, wheezes, rales, rhonchi, stridor Cardiovascular Exam: Present: regular rate, normal rhythm, normal heart sounds. Absent: systolic murmur, diastolic murmur, rubs, gallop GI/Abdominal exam: Present: soft, normal bowel sounds. Absent: distended, tenderness, guarding, rebound, rigid, mass, pulsatile mass, hernia Back exam: Present: normal inspection, CVA tenderness (L) (Mild). Absent: CVA tenderness (R), paraspinal tenderness, vertebral tenderness Neurological exam: Present: alert Skin exam: Present: warm, dry, intact, normal color. Absent: rash <David Mehta - Last Filed: 07/15/17 10:15> Vital Signs 07/12/17 07/12/17 07/12/17 04:27 05:43 06:19 Temperature 97.6 F 97.8 F Pulse Rate 112 H 100 98 Respiratory 16 18 18 Rate Blood Pressure 125/60 117/60 121/58 O2 Sat by Pulse 98 100 99 Oximetry 07/12/17 07/12/17 08:06 09:17 Temperature 97.9 F Pulse Rate 102 H 93 Respiratory 16 18 Rate Blood Pressure 104/55 112/59 O2 Sat by Pulse 100 100 Oximetry Medical Decision Making - Lab Data Result diagrams: 07/12/17 04:45 07/12/17 04:45 <Willy Leroy - Last Filed: 07/12/17 09:05> - Lab Data Result diagrams: 07/12/17 04:45 07/12/17 04:45 <David Mehta - Last Filed: 07/15/17 10:15> - Medical Decision Making Ultrasound shows complex cyst on the left kidney I will begin to reevaluate the patient patient states her pain is relieved and she feels considerably better. Patient will follow-up with Dr. Barrera. (Willy Leroy) - Lab Data Lab Results 07/12/17 07/12/17 07/12/17 Range/Units 04:35 04:35 04:45 WBC 18.2 H (3.8-10.6) k/uL RBC 4.98 (3.80-5.40) m/uL Hgb 14.1 (11.4-16.0) gm/dL Hct 41.1 (34.0-46.0) % MCV 82.5 (80.0-100.0) fL MCH 28.4 (25.0-35.0) pg MCHC 34.4 (31.0-37.0) g/dL RDW 12.7 (11.5-15.5) % Plt Count 247 (150-450) k/uL Neutrophils % 88 % Lymphocytes % 7 % Monocytes % 3 % Eosinophils % 1 % Basophils % 0 % Neutrophils # 16.0 H (1.3-7.7) k/uL Lymphocytes # 1.3 (1.0-4.8) k/uL Monocytes # 0.6 (0-1.0) k/uL Eosinophils # 0.2 (0-0.7) k/uL Basophils # 0.0 (0-0.2) k/uL Sodium (137-145) mmol/L Potassium (3.5-5.1) mmol/L Chloride (98-107) mmol/L Carbon Dioxide (22-30) mmol/L Anion Gap mmol/L BUN (7-17) mg/dL Creatinine (0.52-1.04) mg/dL Est GFR (CKD-EPI)AfAm (>60 ml/min/1.73 sqM) Est GFR (CKD-EPI)NonAf (>60 ml/min/1.73 sqM) Glucose (74-99) mg/dL Calcium (8.4-10.2) mg/dL Total Bilirubin (0.2-1.3) mg/dL AST (14-36) U/L ALT (9-52) U/L Alkaline Phosphatase (38-126) U/L Total Protein (6.3-8.2) g/dL Albumin (3.5-5.0) g/dL Urine Color Yellow Urine Appearance Cloudy H (Clear) Urine pH 8.0 (5.0-8.0) Ur Specific [place] 1.014 (1.001-1.035) Urine Protein Negative (Negative) Urine Glucose (UA) Negative (Negative) Urine Ketones Negative (Negative) Urine Blood Negative (Negative) Urine Nitrite Negative (Negative) Urine Bilirubin Negative (Negative) Urine Urobilinogen <2.0 (<2.0) mg/dL Ur Leukocyte Esterase Negative (Negative) Ur Squamous Epith Cells <1 (0-4) /hpf Amorphous Sediment Few H (None) /hpf Urine Mucus Rare H (None) /hpf Urine HCG, Qual Detected (Not Detectd) Hep Bs Antigen (Non-Reactive) HIV-1 Antibody (Non-Reactive) HIV Ag/Ab Interpret (()) HIV p24 Antibody (Non-Reactive) HIV-2 Antibody (Non-Reactive) HIV P24 Antigen (Non-Reactive) Rubella IgG Antibody Toxoplasma IgG Ab (<7.2) IU/mL Toxoplasma IgM Ab (<8.0) AU/mL Blood Type Blood Type Recheck 07/12/17 07/12/17 07/12/17 Range/Units 04:45 04:45 05:49 WBC (3.8-10.6) k/uL RBC (3.80-5.40) m/uL Hgb (11.4-16.0) gm/dL Hct (34.0-46.0) % MCV (80.0-100.0) fL MCH (25.0-35.0) pg MCHC (31.0-37.0) g/dL RDW (11.5-15.5) % Plt Count (150-450) k/uL Neutrophils % % Lymphocytes % % Monocytes % % Eosinophils % % Basophils % % Neutrophils # (1.3-7.7) k/uL Lymphocytes # (1.0-4.8) k/uL Monocytes # (0-1.0) k/uL Eosinophils # (0-0.7) k/uL Basophils # (0-0.2) k/uL Sodium 140 (137-145) mmol/L Potassium 3.9 (3.5-5.1) mmol/L Chloride 102 (98-107) mmol/L Carbon Dioxide 23 (22-30) mmol/L Anion Gap 15 mmol/L BUN 10 (7-17) mg/dL Creatinine 0.50 L (0.52-1.04) mg/dL Est GFR (CKD-EPI)AfAm >90 (>60 ml/min/1.73 sqM) Est GFR (CKD-EPI)NonAf >90 (>60 ml/min/1.73 sqM) Glucose 88 (74-99) mg/dL Calcium 9.8 (8.4-10.2) mg/dL Total Bilirubin 0.5 (0.2-1.3) mg/dL AST 21 (14-36) U/L ALT 23 (9-52) U/L Alkaline Phosphatase 73 (38-126) U/L Total Protein 7.1 (6.3-8.2) g/dL Albumin 4.5 (3.5-5.0) g/dL Urine Color Urine Appearance (Clear) Urine pH (5.0-8.0) Ur Specific [place] (1.001-1.035) Urine Protein (Negative) Urine Glucose (UA) (Negative) Urine Ketones (Negative) Urine Blood (Negative) Urine Nitrite (Negative) Urine Bilirubin (Negative) Urine Urobilinogen (<2.0) mg/dL Ur Leukocyte Esterase (Negative) Ur Squamous Epith Cells (0-4) /hpf Amorphous Sediment (None) /hpf Urine Mucus (None) /hpf Urine HCG, Qual (Not Detectd) Hep Bs Antigen (Non-Reactive) HIV-1 Antibody (Non-Reactive) HIV Ag/Ab Interpret (()) HIV p24 Antibody (Non-Reactive) HIV-2 Antibody (Non-Reactive) HIV P24 Antigen (Non-Reactive) Rubella IgG Antibody Toxoplasma IgG Ab <3.0 (<7.2) IU/mL Toxoplasma IgM Ab <3.0 (<8.0) AU/mL Blood Type A Negative Blood Type Recheck No 07/12/17 07/12/17 07/12/17 Range/Units 05:49 05:49 05:49 WBC (3.8-10.6) k/uL RBC (3.80-5.40) m/uL Hgb (11.4-16.0) gm/dL Hct (34.0-46.0) % MCV (80.0-100.0) fL MCH (25.0-35.0) pg MCHC (31.0-37.0) g/dL RDW (11.5-15.5) % Plt Count (150-450) k/uL Neutrophils % % Lymphocytes % % Monocytes % % Eosinophils % % Basophils % % Neutrophils # (1.3-7.7) k/uL Lymphocytes # (1.0-4.8) k/uL Monocytes # (0-1.0) k/uL Eosinophils # (0-0.7) k/uL Basophils # (0-0.2) k/uL Sodium (137-145) mmol/L Potassium (3.5-5.1) mmol/L Chloride (98-107) mmol/L Carbon Dioxide (22-30) mmol/L Anion Gap mmol/L BUN (7-17) mg/dL Creatinine (0.52-1.04) mg/dL Est GFR (CKD-EPI)AfAm (>60 ml/min/1.73 sqM) Est GFR (CKD-EPI)NonAf (>60 ml/min/1.73 sqM) Glucose (74-99) mg/dL Calcium (8.4-10.2) mg/dL Total Bilirubin (0.2-1.3) mg/dL AST (14-36) U/L ALT (9-52) U/L Alkaline Phosphatase (38-126) U/L Total Protein (6.3-8.2) g/dL Albumin (3.5-5.0) g/dL Urine Color Urine Appearance (Clear) Urine pH (5.0-8.0) Ur Specific [place] (1.001-1.035) Urine Protein (Negative) Urine Glucose (UA) (Negative) Urine Ketones (Negative) Urine Blood (Negative) Urine Nitrite (Negative) Urine Bilirubin (Negative) Urine Urobilinogen (<2.0) mg/dL Ur Leukocyte Esterase (Negative) Ur Squamous Epith Cells (0-4) /hpf Amorphous Sediment (None) /hpf Urine Mucus (None) /hpf Urine HCG, Qual (Not Detectd) Hep Bs Antigen Non-Reactive (Non-Reactive) HIV-1 Antibody Non-Reactive (Non-Reactive) HIV Ag/Ab Interpret (()) HIV p24 Antibody Non-Reactive (Non-Reactive) HIV-2 Antibody Non-Reactive (Non-Reactive) HIV P24 Antigen Non-Reactive (Non-Reactive) Rubella IgG Antibody 151.00 Toxoplasma IgG Ab (<7.2) IU/mL Toxoplasma IgM Ab (<8.0) AU/mL Blood Type Blood Type Recheck Disposition Is patient prescribed a controlled substance at d/c from ED?: No Time of Disposition: 09:06 <Willy Leroy - Last Filed: 07/12/17 09:05> Is patient prescribed a controlled substance at d/c from ED?: No <David Mehta - Last Filed: 07/15/17 10:15> Clinical Impression: Left flank pain Disposition: HOME SELF-CARE Condition: Good Instructions: Abdominal Pain (ED) Referrals: Gonzales Ramos DO [Primary Care Provider] - 1-2 days
--- NOTE | 2017-07-12 08:24 | US ---
EXAMINATION TYPE: US abdomen limited DATE OF EXAM: 07/12/2017 COMPARISON: NONE CLINICAL HISTORY: L renal colic. Left flank pain and N/V x 2 days EXAM MEASUREMENTS: Spleen: 10.9cm Left Kidney: 10.5 x 5.5 x 5.0cm 1. Spleen: visualized portions wnl 2. Left Kidney: 1.7 x 1.7 x 1.4cm hypoechoic cystic area superior pole IMPRESSION: 1. Complex cyst superior pole left kidney. Monitoring is recommended. 2. No hydronephrosis or shadowing renal stones identified left kidney
[2017-07-12 09:18] VITALS: BP 112/59; PULSE 93; RESP 18; TEMP 97.9
[2017-07-12 20:31] LABS: HIV AB P24 Non-Reactive (Non-Reactive); HIV P24 AG Non-Reactive (Non-Reactive)
[2017-07-13 06:42] LABS: Toxoplasma Antibody (IgG) <3.0 IU/mL (<7.2); Toxoplasma Antibody (IgM) <3.0 AU/mL (<8.0)
== END 2017-07-12 09:17 | disposition home or self-care (01) ==
LOC: EC 04:23
DX: O99.89 Other specified diseases and conditions complicating pregnancy, childbirth and the puerperium (principal); R10.12 Left upper quadrant pain; M54.9 Dorsalgia, unspecified; N28.1 Cyst of kidney, acquired; Z79.82 Long term (current) use of aspirin; Z79.899 Other long term (current) drug therapy; Z86.79 Personal history of other diseases of the circulatory system; Z3A.13 13 weeks gestation of pregnancy
CPT/HCPCS: 36415; 86900; 86901; 86778; 86762; 86777; 80053; 85025; 87340; 81001; 81025; 87390; 76705; 99284; 96374; J2765

== ENCOUNTER → 2017-10-19 | Outpatient (CLI) | payer BC ==
[2017-10-19 08:50] LABS: HCT 36.5 % (34.0-46.0); HGB 11.8 gm/dL (11.4-16.0); MCHC 32.4 g/dL (31.0-37.0); MCV 86.5 fL (80.0-100.0); Mean Platelet Volume 6.8; Platelet Count 252 k/uL (150-450); RBC 4.22 m/uL (3.80-5.40); RDW 12.5 % (11.5-15.5); WBC 12.2 k/uL (3.8-10.6)
== END | disposition home or self-care (01) ==
LOC: LABWHC1 07:20
PROVIDERS: ATTEND Obstetrics & Gynecology
DX: Z34.82 Encounter for supervision of other normal pregnancy, second trimester (principal); Z3A.00 Weeks of gestation of pregnancy not specified
CPT/HCPCS: 36415; 82950; 85027; 86850

== ENCOUNTER 2017-12-25 10:54 | Outpatient (CLI) | payer BC ==
[2017-12-25 12:15] LABS: Basophils % (A) 0 %; Eosinophils # (A) 0.1 k/uL (0-0.7); Eosinophils % (A) 1 %; HCT 34.2 % (34.0-46.0); HGB 11.3 gm/dL (11.4-16.0); Hypochromasia Slight; Lymphocytes # (A) 1.5 k/uL (1.0-4.8); Lymphocytes % (A) 14 %; MCH 26.5 pg (25.0-35.0); MCHC 33.2 g/dL (31.0-37.0); MCV 79.8 fL (80.0-100.0); Mean Platelet Volume 7.8; Monocytes # (A) 0.7 k/uL (0-1.0); Monocytes % (A) 7 %; Neutrophils # (A) 8.1 k/uL (1.3-7.7); Neutrophils % (A) 76 %; Platelet Count 230 k/uL (150-450); RBC 4.28 m/uL (3.80-5.40); RDW 13.8 % (11.5-15.5); WBC 10.6 k/uL (3.8-10.6)
[2017-12-25 12:23] LABS: Appearance,Urine Clear (Clear); Bilirubin,Urine Negative (Negative); Blood,Urine Negative (Negative); Color,Urine Light Yellow; Glucose,Urine (UA) Negative (Negative); Ketones,Urine Negative (Negative); Leukocyte Esterase,Urine Negative (Negative); Nitrite,Urine Negative (Negative); PH, Urine 6.5 (5.0-8.0); Protein,Urine Negative (Negative); Specific Gravity,Urine 1.005 (1.001-1.035); Urobilinogen,Urine <2.0 mg/dL (<2.0)
[2017-12-25 12:31] LABS: ALT 17 U/L (9-52); AST 21 U/L (14-36); Blood Urea Nitrogen 7 mg/dL (7-17); LDH 372 U/L (313-618); Uric Acid 3.9 mg/dL (3.7-7.4)
[2017-12-25 16:15] VITALS: BP 131/70; PULSE 96; RESP 18; TEMP 98.4
--- NOTE | 2017-12-25 16:53 | P.MSEPDOC ---
Presenting Problems - Arrival Data Date of Arrival on Unit: 12/25/17 Time of Arrival on Unit: 10:54 Mode of Transport: Ambulatory - Complaint OB-Reason for Admission/Chief Complaint: Elevated Blood Pressure Comment: pt presents to triage from Dr Baca's office with script for pre eclampsia. work up after elevated blood pressures in office. pt states last baby was induced at 37. 1/7 due to preeclampsia with blood pressures in 190/ 90s. had magnesium with last baby. bps have been good this baby but were 140/ 82 in office today prompting work up Medical History - Information : 2 Para: 1 Term: 1 : 0 Abortions: Spontaneous or Elective: 0 Number of Living Children: 1 - Gestational Age Gestational Age by LEVON (wks/days): 39 Weeks and 1 Days - History Comment: pt states saw high risk Dr in [place] 1 time this due to EIF in. ultrasound "something in baby's heart". but echo still shows eif but no. complications. Review of Systems - Review of Systems Constitutional: No problems Breast: No problems ENT: No problems Cardiovascular: No problems Respiratory: No problems Gastrointestinal: No problems Genitourinary: No problems Musculoskeletal: No problems Neurological: No problems Skin: No problems Comment: Serial B/ps 15 min apart 131/70, 128/67, 121/61, 119/66, 109/63 pt states had headache but it is resoloved with tylenol Vital Signs - Temperature Temperature: 98.4 F Temperature Source: Oral - Pulse Right Pulse Rate: 96 Pulse Assessment Method: Automatic Cuff - Respirations Respiratory Rate: 18 Oxygen Delivery Method: Room Air O2 Sat by Pulse Oximetry: 100 - Blood Pressure Right Arm Blood Pressure: 131/70 Blood Pressure Mean: 90 Blood Pressure Source: Automatic Cuff Medical Screen Scoring (Pre) - Cervical Exam Effacement: Exam Deferred - Uterine Contractions Frequency: N/A Duration: N/A Intensity: N/A - Maternal Vital Signs Maternal Temperature: N/A Maternal Blood Pressure: N/A Signs of Preeclampsia: N/A Maternal Respirations: N/A - Pain Assessment Pain Scale Used: Numeric (1 - 10) Pain Intensity: 0 - Total Score Total Score (Pre): 0 - Level of Risk Level of Risk: Low (0-5) Physician Notification (Pre) - Physician Notified Physician Notified Date: 12/25/17 Physician Notified Time: 12:47 Physician/Practitioner Notifed:: Dr Peters New Order Received: Yes - Notification Comment Comment: Dr Peters in room. Reviewed all labs, all bps and pt status with cat 1 FHT. reassuring NST, Discussed plan for discharge on modified bed rest with detailed. instructions of Preeclampsia symptoms and when to return to hospital. Keep follow up. appt Sun and Sunday. Return with any concerns or syptoms. Pt verbalized understanding. and is comforable going home. Disposition - Disposition OB Disposition: Discharge to home Discharge Date: 12/25/17 Discharge Time: 12:52 I agree with the RN Medical Screening Exam: Yes Risk & Benefit of care provided described in d/c instruction: Yes Diagnosis: GESTATIONAL HTN W/O SIGNIFICANT PROTEINURIA, THIRD TRIMESTER
== END 2017-12-25 12:52 | disposition home or self-care (01) ==
LOC: FBPOP 10:54
PROVIDERS: ATTEND Obstetrics & Gynecology
DX: O13.3 Gestational [pregnancy-induced] hypertension without significant proteinuria, third trimester (principal); Z3A.39 39 weeks gestation of pregnancy
CPT/HCPCS: 59025; 81003; 82565; 83615; 84450; 84460; 84520; 84550; 85025

== ENCOUNTER 2018-01-04 05:30 | Inpatient (IN) | payer BC ==
[2018-01-04] MEDS ORDERED: TERBUTALINE 1 MG/ML VIAL SQ PRN (05:36)
[2018-01-04] MEDS ORDERED: LIDOCAINE 0.5% (PF) 5 MG/ML (50 ML SDV) SQ PRN (05:36)
[2018-01-04] MEDS ORDERED: OXYTOCIN 20 UNITS/1000 ML NS 1,000 ML IV SCH ×2 (05:36→16:08)
[2018-01-04] MEDS ORDERED: METHYLERGONOVINE 0.2 MG/ML 1 ML AMP IM PRN (05:36)
[2018-01-04] MEDS ORDERED: CARBOPROST TROMETHAMINE 250 MCG/ML 1 ML AMP IM PRN (05:36)
[2018-01-04] MEDS ORDERED: OXYTOCIN 10 UNIT/ML 1 ML VIAL IM PRN (05:36)
[2018-01-04 05:52] LABS: Hypochromasia Slight; Poikilocytosis Slight
[2018-01-04] MEDS: LACTATED RINGERS 1,000 ML IV SCH ×3 (05:57→12:53)
[2018-01-04 05:58] LABS: Basophils % (A) 0 %; Eosinophils # (A) 0.2 k/uL (0-0.7); Eosinophils % (A) 2 %; HCT 36.4 % (34.0-46.0); Lymphocytes # (A) 1.9 k/uL (1.0-4.8); Lymphocytes % (A) 19 %; MCV 78.6 fL (80.0-100.0); Mean Platelet Volume 7.8; Monocytes # (A) 0.6 k/uL (0-1.0); Monocytes % (A) 6 %; Neutrophils % (A) 71 %; Platelet Count 222 k/uL (150-450); RBC 4.63 m/uL (3.80-5.40); RDW 13.7 % (11.5-15.5); WBC 9.9 k/uL (3.8-10.6)
--- NOTE | 2018-01-04 06:08 | P.HPOB ---
History of Present Illness H&P Date: 01/04/18 Chief Complaint: Hypertension This is a pleasant 22-year-old 2 para 1 female estimated date of confinement 01/21/2018 estimated gestational age 37-4/7 weeks who presents to labor and delivery for induction of labor secondary to gestational hypertension at term. Patient's history is such that she had severe preeclampsia at 37 weeks last . She was placed on baby aspirin this and stopped at 36 weeks. Patient will last 2 weeks is developed significant hypertension greater than 140/90 on 2 separate occasions and per current recommendations presents for delivery. Patient's care otherwise has been uncomplicated. Review of Systems Constitutional: Denies chills, Denies fever Gastrointestinal: Reports heartburn Genitourinary: Reports Menstruation: Reports amenorrhea Past Medical History Past Medical History: No Reported History Additional Past Medical History / Comment(s): Patient had a 37 week vaginal delivery for a baby girl with severe preeclampsia. History of Any Multi-Drug Resistant Organisms: None Reported Past Surgical History: No Surgical Hx Reported Additional Past Surgical History / Comment(s): wisdom teeth Past Anesthesia/Blood Transfusion Reactions: No Reported Reaction Smoking Status: Never smoker Past Alcohol Use History: None Reported Past Drug Use History: None Reported - Past Family History Mother Family Medical History: Hypertension Father Family Medical History: Hypertension Medications and Allergies Allergies Allergy/AdvReac Type Severity Reaction Status Date / Time amoxicillin [From Augmentin] AdvReac Nausea & Verified 01/04/18 05:35 Vomiting clavulanic acid AdvReac Nausea & Verified 01/04/18 05:35 [From Augmentin] Vomiting metoclopramide [From Reglan] AdvReac Hallucinati Verified 01/04/18 05:35 ons Exam Intake and Output 01/03/18 01/03/18 01/04/18 14:59 22:59 06:59 Other: Weight 71.214 kg - OBG Physical Exam Abdomen: bowel sounds normal, no diffuse tenderness, no bruit present, no guarding noted, no hepatomegaly, no splenomegaly, no mass Vulva: both: normal Vagina: normal moisture Cervix: Cervix is 2 cm thick and -2. Cervix: no lesion, no discharge Uterus: enlarged (Fundal height is 38 cm) Results blood work shows she is A-, rubella immune, RPR nonreactive, hepatitis B is negative, she received RhoGAM on October 26. Ultrasounds have been normal. Group B strep is negative. Assessment and Plan Assessment: This patient is a pleasant 22-year-old 2 para 1 female 37-4/7 weeks gestation with gestational hypertension beyond 37 weeks. Plan is to proceed with induction of labor and delivery per current recommendations. At this time there is no evidence of preeclampsia. (1) Gestational hypertension affecting second Current Visit: Yes Status: Acute Code(s): O13.9 - GESTATIONAL HTN W/O SIGNIFICANT PROTEINURIA, UNSP TRIMESTER SNOMED Code(s): 52752346 (2) Rh negative status during Current Visit: Yes Status: Chronic Code(s): O09.899 - SUPERVISION OF OTHER HIGH RISK PREGNANCIES, UNSP TRIMESTER; Z67.91 - UNSPECIFIED BLOOD TYPE, RH NEGATIVE SNOMED Code(s): 922132476
[2018-01-04 06:18] VITALS: BMI 27.8
[2018-01-04] MEDS: BUTORPHANOL 1 MG/ML 1 ML VIAL IV PRN ×2 (09:34→11:36)
[2018-01-04] MEDS ORDERED: fentaNYL (PF) 50 MCG/ML 5 ML AMP ONE (12:32)
[2018-01-04] MEDS ORDERED: SODIUM CHLORIDE 0.9% 100 ML BAG ONE (12:32)
[2018-01-04] MEDS ORDERED: ROPIVACAINE 5MG/ML 20ML VIAL ONE (12:32)
[2018-01-04] MEDS ORDERED: ACETAMINOPHEN TAB 325 MG TAB PO PRN (16:08)
[2018-01-04] MEDS ORDERED: WITCH HAZEL 1 EACH MED..PAD TOPICAL PRN (16:08)
[2018-01-04] MEDS ORDERED: SIMETHICONE 80 MG CHEWABLE PO PRN (16:08)
[2018-01-04] MEDS ORDERED: diphenhydrAMINE 25 MG CAP PO PRN (16:08)
[2018-01-04] MEDS ORDERED: Rhogam IMMUNE GLOBULIN 1,500 UNIT/1 ML IM ONE (16:08)
[2018-01-04] MEDS ORDERED: BENZOCAINE/MENTHOL SPRAY 1 GM/SPRAY AEROSOL TOPICAL PRN (16:08)
[2018-01-04] MEDS ORDERED: ZOLPIDEM 5 MG TAB PO PRN (16:08)
[2018-01-04] MEDS ORDERED: LANOLIN CREAM 5 GM TUBE TOPICAL PRN (16:08)
[2018-01-04] MEDS ORDERED: diphenhydrAMINE 50 MG/ML 1 ML VIAL IVP PRN (16:08)
[2018-01-04] MEDS ORDERED: HYDROCORTISONE 2.5% RECTAL CREAM 30 GM TUBE RECTAL PRN (16:08)
--- NOTE | 2018-01-04 16:20 | P.PROBDLV ---
Vaginal Delivery Note - . Vaginal Delivery Note: Normal vaginal delivery viable male infant Apgars are 8 and 9 delivery time is 1557 hrs. Please see dictated H&P for intimate details of this patient's admission. Brief summary this is a pleasant 22-year-old 2 para 1 female 37-4/7 weeks who presents to labor and delivery for induction secondary to gestational hypertension. Patient is 2 cm and thick on admission and has artificial rupture membranes for clear fluid. Labor is induced with Pitocin per protocol. Patient's labor progresses and she receives 2 doses of Stadol and then an epidural for pain control. Patient's labor progresses normally patient gets complete. Patient pushes approximately 2 times pushes the head to the perineum. Posterior perineum is supported we have controlled delivery of 's head over the intact perineum. Mouth and nares are bulb suctioned. There is no evidence of a nuchal cord. With gentle downward traction we then have deliver the anterior and posterior shoulder and rest this 's body. This is a vigorous viable male infant Apgars are 8 and 9 delivery time is 1557 hrs. After delivery of the infant the is late on the mother's abdomen after the cord is done pulsating it is doubly clamped and cut. Cord blood is obtained for Rh status. The placenta then spontaneously delivers intact. Inspection of perineum shows a first-degree posterior laceration is repaired with 3-0 Vicryl in the usual fashion excellent reapproximation is noted. A blood loss is 100 mL. There are no complications. All counts correct 3.
[2018-01-04] MEDS: SENNOSIDES-DOCUSATE SODIUM 1 EACH TAB PO SCH ×2 (16:37→19:56)
[2018-01-04] MEDS: busPIRone HCl 5 MG TAB PO SCH (20:47)
[2018-01-04] MEDS: IBUPROFEN 600 MG TAB PO PRN (23:08)
[2018-01-05] MEDS: IBUPROFEN 600 MG TAB PO PRN ×3 (06:42→20:27)
--- NOTE | 2018-01-05 08:06 | P.DS ---
Providers Date of admission: 01/04/18 05:30 Expected date of discharge: 01/05/18 Attending physician: Mj Peters Primary care physician: [facility] Course: Kirsten is doing very well post day 1. She is ambulating, voiding, and she is tolerating her diet. She voices no complaints. Vital signs are stable and afebrile. Heart regular, lungs clear, extremities without pain. Abdomen soft uterus is firm lochia is reported light. Assessment day 1. Plan discharged home follow up with Dr. Peters in 6 weeks. Prescription for Motrin was forwarded to the pharmacy Patient Condition at Discharge: Good Plan - Discharge Summary New Discharge Prescriptions: New busPIRone HCl [Buspar] 7.5 mg PO BID #60 tab Ibuprofen [Motrin] 600 mg PO Q6HR PRN #40 tab PRN Reason: Mild Pain Or Fever >= 100.5 Discharge Medication List Ibuprofen [Motrin] 600 mg PO Q6HR PRN #40 tab 01/04/18 [Rx] busPIRone HCl [Buspar] 7.5 mg PO BID #60 tab 01/04/18 [Rx] Follow up Appointment(s)/Referral(s): Mj Peters MD [STAFF PHYSICIAN] - 02/18/18 11:15 am Patient Instructions/Handouts: Vaginal Delivery (DC) Activity/Diet/Wound Care/Special Instructions: No intercourse or anything per vagina for 6 weeks. Please call if any fever, chills, excessive vaginal bleeding, and/or abdominal pain. Discharge Disposition: HOME SELF-CARE
[2018-01-05] MEDS: SENNOSIDES-DOCUSATE SODIUM 1 EACH TAB PO SCH (11:34)
[2018-01-05] MEDS: busPIRone HCl 5 MG TAB PO SCH ×2 (11:36→23:09)
[2018-01-05 17:58] VITALS: RESP 15
[2018-01-06] MEDS: SENNOSIDES-DOCUSATE SODIUM 1 EACH TAB PO SCH (00:17)
[2018-01-06] MEDS: IBUPROFEN 600 MG TAB PO PRN (05:44)
[2018-01-06] MEDS: busPIRone HCl 5 MG TAB PO SCH (08:01)
[2018-01-06 08:08] VITALS: BP 117/61; PULSE 101; TEMP 97.6
--- NOTE | 2018-01-06 10:32 | P.DS ---
Providers Date of admission: 01/04/18 05:30 Expected date of discharge: 01/06/18 Attending physician: Mj Peters Primary care physician: [facility] Course: Kirsten is doing very well. She stayed in the hospital yesterday due to baby having jaundice. No other changes from prior discharge instructions were plan. Discharge home today. Plan - Discharge Summary New Discharge Prescriptions: New busPIRone HCl [Buspar] 7.5 mg PO BID #60 tab Ibuprofen [Motrin] 600 mg PO Q6HR PRN #40 tab PRN Reason: Mild Pain Or Fever >= 100.5 Discharge Medication List Ibuprofen [Motrin] 600 mg PO Q6HR PRN #40 tab 01/04/18 [Rx] busPIRone HCl [Buspar] 7.5 mg PO BID #60 tab 01/04/18 [Rx] Follow up Appointment(s)/Referral(s): Mj Peters MD [STAFF PHYSICIAN] - 02/18/18 11:15 am Patient Instructions/Handouts: Vaginal Delivery (DC) Activity/Diet/Wound Care/Special Instructions: No intercourse or anything per vagina for 6 weeks. Please call if any fever, chills, excessive vaginal bleeding, and/or abdominal pain. Discharge Disposition: HOME SELF-CARE
== END 2018-01-06 11:00 | disposition home or self-care (01) | DRG 807 ==
LOC: 4FBP 05:30
PROVIDERS: ADMIT Obstetrics & Gynecology; ATTEND Obstetrics & Gynecology
PROC: 10E0XZZ Delivery of Products of Conception, External Approach (ICD-10-PCS; principal; 2018-01-04)
PROC: 0HQ9XZZ Repair Perineum Skin, External Approach (ICD-10-PCS; 2018-01-04)
PROC: 00HU33Z Insertion of Infusion Device into Spinal Canal, Percutaneous Approach (ICD-10-PCS; 2018-01-04)
PROC: 3E0R3BZ Introduction of Anesthetic Agent into Spinal Canal, Percutaneous Approach (ICD-10-PCS; 2018-01-04)
PROC: 3E033VJ Introduction of Other Hormone into Peripheral Vein, Percutaneous Approach (ICD-10-PCS; 2018-01-04)
PROC: 10907ZC Drainage of Amniotic Fluid, Therapeutic from Products of Conception, Via Natural or Artificial Opening (ICD-10-PCS; 2018-01-04)
DX: O13.4 Gestational [pregnancy-induced] hypertension without significant proteinuria, complicating childbirth (principal); Z37.0 Single live birth; O70.0 First degree perineal laceration during delivery; O26.893 Other specified pregnancy related conditions, third trimester; Z3A.37 37 weeks gestation of pregnancy; Z67.91 Unspecified blood type, Rh negative; Z82.49 Family history of ischemic heart disease and other diseases of the circulatory system; Z88.1 Allergy status to other antibiotic agents; Z88.0 Allergy status to penicillin; Z88.8 Allergy status to other drugs, medicaments and biological substances
CPT/HCPCS: 85025; 86850; 86870; 86880; 86900; 86901; 88307

== ENCOUNTER 2021-12-24 23:02 | Emergency (ER) | payer BC ==
[2021-12-24 23:15] VITALS: RESP 16
--- NOTE | 2021-12-25 00:19 | ED ---
General Adult HPI - General Chief complaint: Anxiety Stated complaint: SOB, numbness Time Seen by Provider: 12/24/21 23:54 Source: patient, RN notes reviewed Mode of arrival: ambulatory Limitations: no limitations - History of Present Illness Initial comments: This is a 26-year-old female who presents to the emergency department for evaluation. Patient states she feels as if she is going to pass out. Complaints of shortness of breath and diffuse burning sensation in her chest. Patient states she was diagnosed with Covid on Sunday and has been feeling anxious since. States this evening her face and hands became numb; reports rapid shallow breathing with difficulty calming down. Also endorses nasal stuffiness, mild congested cough, sore throat, and body aches. Did not take anything at home prior to arrival. Denies fever, chills, headache, abdominal pain and nausea vomiting diarrhea, dysuria, or hematuria. - Related Data Previous Rx's Medication Instructions Recorded Ibuprofen [Motrin] 600 mg PO Q6HR PRN #40 tab 01/04/18 busPIRone HCl [Buspar] 7.5 mg PO BID #60 tab 01/04/18 ALPRAZolam [Xanax] 0.25 mg PO BID PRN 3 Days #6 tab 12/25/21 Ondansetron Odt [Zofran Odt] 4 mg PO Q8HR PRN #10 tab 12/25/21 Allergies Allergy/AdvReac Type Severity Reaction Status Date / Time amoxicillin [From Augmentin] AdvReac Nausea & Verified 01/04/18 05:35 Vomiting clavulanic acid AdvReac Nausea & Verified 01/04/18 05:35 [From Augmentin] Vomiting metoclopramide [From Reglan] AdvReac Hallucinati Verified 01/04/18 05:35 ons Review of Systems ROS Statement: Those systems with pertinent positive or pertinent negative responses have been documented in the HPI. ROS Other: All systems not noted in ROS Statement are negative. Past Medical History Past Medical History: No Reported History Additional Past Medical History / Comment(s): Patient had a 37 week vaginal delivery for a baby girl with severe preeclampsia. History of Any Multi-Drug Resistant Organisms: None Reported Past Surgical History: No Surgical Hx Reported Additional Past Surgical History / Comment(s): wisdom teeth Past Anesthesia/Blood Transfusion Reactions: No Reported Reaction Past Psychological History: No Psychological Hx Reported Past Alcohol Use History: None Reported Past Drug Use History: None Reported - Past Family History Mother Family Medical History: Hypertension Father Family Medical History: Hypertension General Exam Limitations: no limitations General appearance: alert, anxious (Well-developed, well-nourished female in no acute distress though patient is quite anxious. Initial temperature 97.4, pulse 75, respiration 16, blood pressure 149/75, pulse ox 100% on room air.) Eye exam: Present: normal appearance, PERRL, EOMI. Absent: scleral icterus, conjunctival injection ENT exam: Present: normal oropharynx Respiratory exam: Present: normal lung sounds bilaterally, chest wall tenderness, other (Shallow respirations. Mildly tachypneic.). Absent: respiratory distress, wheezes, rales, rhonchi, stridor Cardiovascular Exam: Present: regular rate, normal rhythm, normal heart sounds. Absent: systolic murmur, diastolic murmur, rubs, gallop, clicks GI/Abdominal exam: Present: soft, normal bowel sounds. Absent: distended, tenderness, guarding, rebound, rigid Neurological exam: Present: alert, oriented X3, CN II-XII intact Expanded Patient oriented to: Present: person, place, time Speech: Present: fluid speech Cranial nerves: EOM's Intact: Normal Motor strength exam: RUE: 5, LUE: 5, RLE: 5, LLE: 5 Eye Response: (4) open spontaneously Motor Response: (6) obeys commands Verbal Response: (5) oriented Adrian Total: 15 Psychiatric exam: Present: anxious Skin exam: Present: warm, dry, intact, normal color. Absent: rash Course Vital Signs 12/24/21 12/25/21 23:11 02:00 Temperature 97.4 F L 97.8 F Pulse Rate 75 79 Respiratory 16 Rate Blood Pressure 149/75 121/77 O2 Sat by Pulse 100 98 Oximetry - Reevaluation(s) Reevaluation #1: 12/25/21 00:17 Patient was evaluated in [facility] while waiting for room to become available. She is very anxious and tachypneic. She is unable to be reassured by the objective measurements such as vital signs. Patient is requesting something for anxiety but has not taken any benzodiazepines in the past. Explained that the chest x-r ay and EKG would be obtained first. I did apologize for the lengthy wait and explained ED triage process. 12/25/21 01:11 Upon reevaluation, patient is resting more comfortably. States the numbness has resolved, but is now nauseous and remains very anxious. Will initiate further [facility] orders. 12/25/21 02:15 Patient was placed in an ED bed. Nausea improved, but continues to feel anxious. Xanax ordered. Laboratory studies collected. Will reevaluate. 12/25/21 03:45 Patient had significant improvement with IV fluids, Xanax, Zofran, and GI cocktail. Reviewed results with patient and she verbalizes readiness for discharge at this time. Medical Decision Making - Medical Decision Making This is a 26-year-old Covid positive female who presents to the emergency Department with complaints of shortness of breath and anxiety. Upon exam, patient is very anxious. Physical exam findings and vital signs are unremarkable. Laboratory studies were obtained with no significant deviation from baseline. Chest x-ray was negative. EKG shows normal sinus rhythm. Patient was given IV fluids, Zofran, GI cocktail, and Xanax with marked improvement. Nausea has resolved and anxiety is minimal. Patient will be discharged home with prescriptions for Zofran and a very short course of Xanax when necessary. She is instructed to follow-up with her PCP for a recheck this week. Return parameters were discussed in detail. Patient verbalizes understa nding and agrees plan. Attending: Connie. - Lab Data Result diagrams: 12/25/21 01:47 12/25/21 01:47 Lab Results 12/25/21 12/25/21 12/25/21 Range/Units 01:47 01:47 01:47 WBC 9.0 (3.8-10.6) k/uL RBC 5.16 (3.80-5.40) m/uL Hgb 14.8 (11.4-16.0) gm/dL Hct 43.0 (34.0-46.0) % MCV 83.2 (80.0-100.0) fL MCH 28.6 (25.0-35.0) pg MCHC 34.4 (31.0-37.0) g/dL RDW 11.7 (11.5-15.5) % Plt Count 164 (150-450) k/uL MPV 7.5 Neutrophils % 87 % Lymphocytes % 8 % Monocytes % 4 % Eosinophils % 0 % Basophils % 0 % Neutrophils # 7.8 H (1.3-7.7) k/uL Lymphocytes # 0.7 L (1.0-4.8) k/uL Monocytes # 0.4 (0-1.0) k/uL Eosinophils # 0.0 (0-0.7) k/uL Basophils # 0.0 (0-0.2) k/uL D-Dimer 0.23 (<0.60) mg/L FEU Sodium 136 L (137-145) mmol/L Potassium 3.7 (3.5-5.1) mmol/L Chloride 102 (98-107) mmol/L Carbon Dioxide 20 L (22-30) mmol/L Anion Gap 14 mmol/L BUN 11 (7-17) mg/dL Creatinine 0.67 (0.52-1.04) mg/dL Est GFR (CKD-EPI)AfAm >90 (>60 ml/min/1.73 sqM) Est GFR (CKD-EPI)NonAf >90 (>60 ml/min/1.73 sqM) Glucose 104 H (74-99) mg/dL Calcium 8.8 (8.4-10.2) mg/dL Total Bilirubin 0.5 (0.2-1.3) mg/dL AST 37 H (14-36) U/L ALT 20 (4-34) U/L Alkaline Phosphatase 77 (38-126) U/L Total Protein 6.8 (6.3-8.2) g/dL Albumin 4.5 (3.5-5.0) g/dL - EKG Data EKG shows normal: sinus rhythm Rate: normal EKG Comments: EKG obtained at 2356 shows sinus rhythm with nonspecific ST and T wave abnormality. Ventricular rate 73, [place] interval 167, QRS duration 82, QT/QTc 404/429. Interpretation: Borderline ECG. - Radiology Data Radiology results: report reviewed, image reviewed Two-view chest x-ray was obtained. Report was reviewed in its entirety. Impression per Dr. Jackson is normal chest. Disposition Clinical Impression: Anxiety, Nausea Disposition: HOME SELF-CARE Condition: Stable Instructions (If sedation given, give patient instructions): Anxiety (ED) Additional Instructions: Take Xanax if needed for increased anxiety. Focus on symptomatic management with coping skills. Zofran is prescribed for nausea. Increase fluids. Get plenty of rest. Follow-up with your PCP for a recheck this week. Return to the emergency department with any new, worsening, or concerning symptoms. Prescriptions: ALPRAZolam [Xanax] 0.25 mg PO BID PRN 3 Days #6 tab PRN Reason: Anxiety Ondansetron Odt [Zofran Odt] 4 mg PO Q8HR PRN #10 tab PRN Reason: Nausea Is patient prescribed a controlled substance at d/c from ED?: Yes When asked, does pt state using other controlled substances?: No If prescribed controlled substance>3 days was MAPS reviewed?: Prescribed <3 Days Referrals: Gonzales Ramos DO [Primary Care Provider] - 1-2 days Time of Disposition: 04:12
--- NOTE | 2021-12-25 00:36 | XR ---
EXAMINATION TYPE: XR chest 2V DATE OF EXAM: 12/25/2021 COMPARISON: NONE HISTORY: Chest pain TECHNIQUE: 2 views FINDINGS: Heart and mediastinum are normal. Lungs are clear. Diaphragm is normal. Bony thorax appears normal. IMPRESSION: Normal chest.
[2021-12-25] MEDS ORDERED: ONDANSETRON ODT 4 MG TAB PO STA (01:11)
[2021-12-25] MEDS ORDERED: ALPRAZolam 0.25 MG TAB PO STA (02:02)
[2021-12-25] MEDS ORDERED: SODIUM CHLORIDE 0.9% 1,000 ML IV STA (02:02)
[2021-12-25 02:30] LABS: Basophils % (A) 0 %; Eosinophils % (A) 0 %; HGB 14.8 gm/dL (11.4-16.0); Lymphocytes # (A) 0.7 k/uL (1.0-4.8); Lymphocytes % (A) 8 %; MCH 28.6 pg (25.0-35.0); MCHC 34.4 g/dL (31.0-37.0); MCV 83.2 fL (80.0-100.0); Mean Platelet Volume 7.5; Monocytes # (A) 0.4 k/uL (0-1.0); Monocytes % (A) 4 %; Neutrophils # (A) 7.8 k/uL (1.3-7.7); Neutrophils % (A) 87 %; Platelet Count 164 k/uL (150-450); RBC 5.16 m/uL (3.80-5.40); RDW 11.7 % (11.5-15.5)
[2021-12-25] MEDS ORDERED: MAG HYDROX/AL HYDROX/SIMETH 30 ML, HYOSCYAMINE ELIXIR 10 ML, LIDOCAINE VISCOUS 2% 10 ML PO STA ×3 (02:39)
[2021-12-25 02:49] LABS: ALT 20 U/L (4-34); AST 37 U/L (14-36); African American GFR (CKD) >90 (>60 ml/min/1.73 sqM); Albumin 4.5 g/dL (3.5-5.0); Alkaline Phosphatase 77 U/L (38-126); Anion Gap 14 mmol/L; Blood Urea Nitrogen 11 mg/dL (7-17); Calcium 8.8 mg/dL (8.4-10.2); Carbon Dioxide 20 mmol/L (22-30); Chloride 102 mmol/L (98-107); Glucose 104 mg/dL (74-99); Non-African American GFR(CKD) >90 (>60 ml/min/1.73 sqM); Potassium 3.7 mmol/L (3.5-5.1); Sodium 136 mmol/L (137-145); Total Bilirubin 0.5 mg/dL (0.2-1.3); Total Protein 6.8 g/dL (6.3-8.2)
[2021-12-25] MEDS ORDERED: ONDANSETRON 4 MG ODT STARTER PACK 2 TAB BTL PO STA (04:05)
[2021-12-25 04:19] VITALS: BP 112/68; PULSE 68; TEMP 98
== END 2021-12-25 04:25 | disposition home or self-care (01) ==
LOC: EC 23:02
DX: F41.9 Anxiety disorder, unspecified (principal); U07.1 COVID-19; Z88.0 Allergy status to penicillin; Z88.8 Allergy status to other drugs, medicaments and biological substances
CPT/HCPCS: 36415; 93005 ×2; 85379; 80053; 85025; 71046; 99285; 96360; S0119

== ENCOUNTER 2021-12-25 20:30 | Emergency (ER) | payer BC ==
[2021-12-26 01:46] VITALS: TEMP 98.5
[2021-12-26] MEDS ORDERED: SODIUM CHLORIDE 0.9% 1,000 ML IV STA (03:05)
[2021-12-26] MEDS ORDERED: MAG HYDROX/AL HYDROX/SIMETH 30 ML, HYOSCYAMINE ELIXIR 10 ML, LIDOCAINE VISCOUS 2% 10 ML PO STA ×3 (03:05)
--- NOTE | 2021-12-26 03:11 | ED ---
General Adult HPI - General Chief complaint: Recheck/Abnormal Lab/Rx Stated complaint: COVID +,Palpitations Time Seen by Provider: 12/26/21 02:30 Source: patient, RN notes reviewed Mode of arrival: wheelchair Limitations: no limitations - History of Present Illness Initial comments: 26-year-old female presents to the emergency Department with complaints of palpitations and bilateral arm numbness. Patient states her symptoms have been intermittent since her diagnosis with Covid this past week. Patient was seen in the emergency department yesterday with the same complaints. States she took her Xanax as prescribed and was feeling more calm, however states the numbness in her arms has persisted despite her decrease in anxiety level. Patient comp lains of epigastric burning discomfort. Reports lack of appetite and poor oral intake. Has been taking Zofran as prescribed. Denies fever, chills, chest pain, difficulty breathing vomiting, diarrhea, dysuria, and hematuria. - Related Data Previous Rx's Medication Instructions Recorded Ibuprofen [Motrin] 600 mg PO Q6HR PRN #40 tab 01/04/18 busPIRone HCl [Buspar] 7.5 mg PO BID #60 tab 01/04/18 ALPRAZolam [Xanax] 0.25 mg PO BID PRN 3 Days #6 tab 12/25/21 Ondansetron Odt [Zofran Odt] 4 mg PO Q8HR PRN #10 tab 12/25/21 dexAMETHasone [Decadron] 6 mg PO DAILY #5 tablet 12/26/21 Allergies Allergy/AdvReac Type Severity Reaction Status Date / Time amoxicillin [From Augmentin] AdvReac Nausea & Verified 01/04/18 05:35 Vomiting clavulanic acid AdvReac Nausea & Verified 01/04/18 05:35 [From Augmentin] Vomiting metoclopramide [From Reglan] AdvReac Hallucinati Verified 01/04/18 05:35 ons Review of Systems ROS Statement: Those systems with pertinent positive or pertinent negative responses have been documented in the HPI. ROS Other: All systems not noted in ROS Statement are negative. Past Medical History Past Medical History: No Reported History Additional Past Medical History / Comment(s): Patient had a 37 week vaginal delivery for a baby girl with severe preeclampsia. History of Any Multi-Drug Resistant Organisms: None Reported Past Surgical History: No Surgical Hx Reported Additional Past Surgical History / Comment(s): wisdom teeth Past Anesthesia/Blood Transfusion Reactions: No Reported Reaction Past Psychological History: No Psychological Hx Reported Smoking Status: Never smoker Past Alcohol Use History: None Reported Past Drug Use History: None Reported - Past Family History Mother Family Medical History: Hypertension Father Family Medical History: Hypertension General Exam Limitations: no limitations (Well-developed, well-nourished female in no acute distress, though does appear anxious. Initial temperature 98.1, pulse 86, respirations 16, blood pressure 147/91, pulse ox 100% on room air.) General appearance: alert, in no apparent distress, anxious ENT exam: Present: normal exam, normal oropharynx, mucous membranes moist Neck exam: Present: normal inspection, full ROM. Absent: tenderness, meningismus, lymphadenopathy Respiratory exam: Present: normal lung sounds bilaterally. Absent: respiratory distress, wheezes, rales, rhonchi, stridor, chest wall tenderness Cardiovascular Exam: Present: regular rate, normal rhythm, normal heart sounds. Absent: systolic murmur, diastolic murmur, rubs, gallop, clicks GI/Abdominal exam: Present: soft, normal bowel sounds. Absent: distended, tenderness, guarding, rebound, rigid Extremities exam: Present: normal inspection, full ROM, normal capillary refill. Absent: tenderness, pedal edema, joint swelling, calf tenderness Neurological exam: Present: alert, oriented X3, CN II-XII intact Expanded Patient oriented to: Present: person, place, time Speech: Present: fluid speech Motor strength exam: RUE: 5, LUE: 5, RLE: 5, LLE: 5 Eye Response: (4) open spontaneously Motor Response: (6) obeys commands Verbal Response: (5) oriented Adrian Total: 15 Psychiatric exam: Present: anxious Skin exam: Present: warm, dry, intact, normal color. Absent: rash Course Vital Signs 12/25/21 12/26/21 12/26/21 21:21 01:44 03:00 Temperature 98.1 F 98.5 F Pulse Rate 86 92 72 Respiratory 16 16 20 Rate Blood Pressure 147/91 126/83 134/88 O2 Sat by Pulse 100 100 99 Oximetry 12/26/21 04:28 Temperature Pulse Rate 81 Respiratory 16 Rate Blood Pressure 126/75 O2 Sat by Pulse 97 Oximetry - Reevaluation(s) Reevaluation #1: 12/26/21 04:05 Results were discussed with the patient. Potassium will be supplemented orally and patient will be encouraged to supplement with an electrolyte replacement so lution. Instructed to take Zofran 30 minutes prior to meal time. Discussed importance of oral intake. No significant change in subjective assessment. She will be discharged home to follow up with her PCP for a recheck this week. Medical Decision Making - Medical Decision Making This is a 26-year-old female who presents to the emergency department for repeat visit. She is Covid positive with complaints of palpitations, nausea, and anxie ty. Upon evaluation, patient appears anxious but in no acute distress. Vital signs are stable. Lungs sounds are clear to auscultation. She does have periods of rapid shallow breathing with increased anxiety. Laboratory studies were obtained and patient is found to be hypokalemic with a potassium of 2.8; this was supplemented orally which patient was able to tolerate. She does demonstrate mild hypocalcemia. Covid test is positive. EKG shows normal sinus rhythm with no ectopy. Patient was given a liter of IV fluids. Was given a GI cocktail with some improvement. Findings were discussed at length with patient. She has Zofran and Xanax at home. Discussed appropriate follow-up care. Felix ervin verbalizes understanding and agrees with this plan. Attending: Connie. - Lab Data Result diagrams: 12/26/21 03:25 12/26/21 03:25 Lab Results 12/26/21 12/26/21 12/26/21 Range/Units 03:25 03:25 03:25 WBC 4.5 (3.8-10.6) k/uL RBC 4.78 (3.80-5.40) m/uL Hgb 13.9 (11.4-16.0) gm/dL Hct 39.6 (34.0-46.0) % MCV 82.9 (80.0-100.0) fL MCH 29.0 (25.0-35.0) pg MCHC 35.0 (31.0-37.0) g/dL RDW 12.1 (11.5-15.5) % Plt Count 156 (150-450) k/uL MPV 7.8 Neutrophils % 62 % Lymphocytes % 26 % Monocytes % 7 % Eosinophils % 1 % Basophils % 1 % Neutrophils # 2.8 (1.3-7.7) k/uL Lymphocytes # 1.2 (1.0-4.8) k/uL Monocytes # 0.3 (0-1.0) k/uL Eosinophils # 0.0 (0-0.7) k/uL Basophils # 0.0 (0-0.2) k/uL Sodium 139 (137-145) mmol/L Potassium 2.8 L (3.5-5.1) mmol/L Chloride 109 H (98-107) mmol/L Carbon Dioxide 20 L (22-30) mmol/L Anion Gap 10 mmol/L BUN 4 L (7-17) mg/dL Creatinine 0.58 (0.52-1.04) mg/dL Est GFR (CKD-EPI)AfAm >90 (>60 ml/min/1.73 sqM) Est GFR (CKD-EPI)NonAf >90 (>60 ml/min/1.73 sqM) Glucose 83 (74-99) mg/dL Calcium 7.2 L (8.4-10.2) mg/dL Total Bilirubin 0.4 (0.2-1.3) mg/dL AST 24 (14-36) U/L ALT 16 (4-34) U/L Alkaline Phosphatase 59 (38-126) U/L Troponin I <0.012 (0.000-0.034) ng/mL Total Protein 5.5 L (6.3-8.2) g/dL Albumin 3.4 L (3.5-5.0) g/dL Coronavirus (PCR) (Not Detectd) 12/26/21 Range/Units 03:25 WBC (3.8-10.6) k/uL RBC (3.80-5.40) m/uL Hgb (11.4-16.0) gm/dL Hct (34.0-46.0) % MCV (80.0-100.0) fL MCH (25.0-35.0) pg MCHC (31.0-37.0) g/dL RDW (11.5-15.5) % Plt Count (150-450) k/uL MPV Neutrophils % % Lymphocytes % % Monocytes % % Eosinophils % % Basophils % % Neutrophils # (1.3-7.7) k/uL Lymphocytes # (1.0-4.8) k/uL Monocytes # (0-1.0) k/uL Eosinophils # (0-0.7) k/uL Basophils # (0-0.2) k/uL Sodium (137-145) mmol/L Potassium (3.5-5.1) mmol/L Chloride (98-107) mmol/L Carbon Dioxide (22-30) mmol/L Anion Gap mmol/L BUN (7-17) mg/dL Creatinine (0.52-1.04) mg/dL Est GFR (CKD-EPI)AfAm (>60 ml/min/1.73 sqM) Est GFR (CKD-EPI)NonAf (>60 ml/min/1.73 sqM) Glucose (74-99) mg/dL Calcium (8.4-10.2) mg/dL Total Bilirubin (0.2-1.3) mg/dL AST (14-36) U/L ALT (4-34) U/L Alkaline Phosphatase (38-126) U/L Troponin I (0.000-0.034) ng/mL Total Protein (6.3-8.2) g/dL Albumin (3.5-5.0) g/dL Coronavirus (PCR) Detected A (Not Detectd) - EKG Data EKG shows normal: sinus rhythm Rate: normal EKG Comments: EKG obtained and 333 shows sinus rhythm with borderline right axis deviation and nonspecific T wave abnormality. Ventricular rate 68, [place] interval 157, QRS duration 88, QT/QTc 405/422. Interpretation borderline ECG. Disposition Clinical Impression: Hypokalemia, COVID-19, Anxiety, Nausea Disposition: HOME SELF-CARE Condition: Stable Instructions (If sedation given, give patient instructions): COVID-19 (Coronavirus Disease 2019) (ED) Additional Instructions: Eat small more frequent meals. Choose foods that are palatable and easy to digest. Increase fluids; consider pedialyte or gatorade. Take Zofran 30 minutes prior to eating. The take Motrin as needed for anti-inflammatory properties. Follow-up with your PCP for a recheck this week. Return to the emergency department with any new, worsening, or concerning symptoms. Prescriptions: dexAMETHasone [Decadron] 6 mg PO DAILY #5 tablet Is patient prescribed a controlled substance at d/c from ED?: No Referrals: Gonzales Ramos DO [Primary Care Provider] - 1-2 days Time of Disposition: 04:52
[2021-12-26 03:38] LABS: Basophils % (A) 1 %; Eosinophils % (A) 1 %; HCT 39.6 % (34.0-46.0); HGB 13.9 gm/dL (11.4-16.0); Lymphocytes # (A) 1.2 k/uL (1.0-4.8); Lymphocytes % (A) 26 %; MCV 82.9 fL (80.0-100.0); Mean Platelet Volume 7.8; Monocytes # (A) 0.3 k/uL (0-1.0); Monocytes % (A) 7 %; Neutrophils # (A) 2.8 k/uL (1.3-7.7); Neutrophils % (A) 62 %; Platelet Count 156 k/uL (150-450); RBC 4.78 m/uL (3.80-5.40); RDW 12.1 % (11.5-15.5); WBC 4.5 k/uL (3.8-10.6)
[2021-12-26 03:56] LABS: ALT 16 U/L (4-34); AST 24 U/L (14-36); African American GFR (CKD) >90 (>60 ml/min/1.73 sqM); Albumin 3.4 g/dL (3.5-5.0); Alkaline Phosphatase 59 U/L (38-126); Anion Gap 10 mmol/L; Blood Urea Nitrogen 4 mg/dL (7-17); Calcium 7.2 mg/dL (8.4-10.2); Carbon Dioxide 20 mmol/L (22-30); Chloride 109 mmol/L (98-107); Glucose 83 mg/dL (74-99); Non-African American GFR(CKD) >90 (>60 ml/min/1.73 sqM); Potassium 2.8 mmol/L (3.5-5.1); Sodium 139 mmol/L (137-145); Total Bilirubin 0.4 mg/dL (0.2-1.3); Total Protein 5.5 g/dL (6.3-8.2)
[2021-12-26] MEDS ORDERED: POTASSIUM CHLORIDE ER 20 MEQ TAB.ER PO STA (04:06)
[2021-12-26 04:29] VITALS: BP 126/75; PULSE 81; RESP 16
== END 2021-12-26 05:22 | disposition home or self-care (01) ==
LOC: EC 20:30
DX: U07.1 COVID-19 (principal); E87.6 Hypokalemia; R11.0 Nausea; F41.9 Anxiety disorder, unspecified; Z88.1 Allergy status to other antibiotic agents; Z88.8 Allergy status to other drugs, medicaments and biological substances; Z20.822 Contact with and (suspected) exposure to COVID-19
CPT/HCPCS: 36415; 80053; 84484; 85025; 87635; 93005; 96360; 96361; 99284; 99285

== ENCOUNTER → 2024-10-17 | Outpatient (CLI) | payer BC ==
--- NOTE | 2024-10-17 14:02 | XR ---
EXAMINATION TYPE: XR lumbar spine 2 or 3V DATE OF EXAM: 10/17/2024 12:42 PM COMPARISON: None. CLINICAL INDICATION: Female, 29 years old with history of R52 pain, pain TECHNIQUE: 3 view(s) obtained. FINDINGS: There are 5 lumbar-type vertebral bodies. Pedicles are intact. Disc heights are preserved. Vertebral body heights are preserved. There is some sidebending towards the left. Note is made of a punctate calcification which may be at the inferior pole left kidney. IMPRESSION: 1. No acute osseous abnormality lumbar spine [facility], , 10/17/2024 2:00 PM
--- NOTE | 2024-10-17 14:06 | XR ---
EXAMINATION TYPE: XR thoracic spine 2V DATE OF EXAM: 10/17/2024 12:41 PM COMPARISON: None. CLINICAL INDICATION: Female, 29 years old with history of R52 pain, pain TECHNIQUE: 3 view(s) obtained. FINDINGS: There are 12 thoracic type vertebral bodies. Pedicles are intact. Disc heights are preserved. Vertebr al body heights are preserved. Mild side bending towards left may be present which can be related to patient positioning or muscle spasm. IMPRESSION: 1. No acute osseous abnormality thoracic spine [facility], , 10/17/2024 2:04 PM
== END | disposition home or self-care (01) ==
LOC: RADXRMAIN 12:19
PROVIDERS: ATTEND Family Medicine
DX: M54.50 Low back pain, unspecified (principal); M54.6 Pain in thoracic spine
CPT/HCPCS: 72070; 72100